=== PATIENT | female | born 1965 | race Caucasian/White ===

== ENCOUNTER 2020-03-08 13:11 | Emergency (ER) | payer OTHER, SELFPAY ==
[2020-03-08 13:16] VITALS: BP 108/58; PULSE 78; RESP 14; TEMP 36.2; O2SAT 96
--- NOTE | 2020-03-08 13:37 | ED.EYEPROB ---
HPI - Eye Problem General Chief complaint: Eye Problems Stated complaint: left eye pain Time Seen by Provider: 03/08/20 13:37 Source: patient and RN notes reviewed Mode of arrival: ambulatory Limitations: no limitations History of Present Illness HPI Narrative: 54 year old female who presents to [facility] care with complaints of left eye itching and tearing for the past 3 days with redness and discomfort. Patient states that she called her doctors office on the because of left eye itching and tearing and received Polymyxin eye drops, prednisone and has also been taking Claritin but no improvement has occurred in her eye. Patient admits to rubbing eye and states that scratchy feeling is worse when she blinks, and has increase tearing and discomfort. No contact lens usage.Patient states history of Sulfa Allergy. MD chief complaint: eye redness and other (irritating feeling) Onset (ago): week(s) (2 weeks with increase for the past 3 days) Onset description: gradual Duration: progressively worsening Location: left eye Eye Symptoms: redness and blurry vision (excessive tearing, itching, scratchy feeling) Place: home Mechanism: none Severity: moderate Severity scale (1-10): 8 If Pain, Quality: aching (irritated) and other (itching ) Context: other (allergies) Associated symptoms: rhinorrhea (initially) Treatments Prior to Arrival: other (polymyxin eye gtts she received from PMD office on ) Related Data Patient tetanus UTD: Yes Home Medications Medication Instructions Recorded Confirmed allopurinol 100 mg PO DAILY 03/08/20 03/08/20 atorvastatin 10 mg PO DAILY 03/08/20 03/08/20 carisoprodol 350 mg PO TID 03/08/20 03/08/20 cholecalciferol (vitamin D3) 50 mcg PO DAILY 03/08/20 03/08/20 [Vitamin D3] cilostazol 100 mg PO BID 03/08/20 03/08/20 clonazepam 1 mg PO DAILY 03/08/20 03/08/20 diclofenac potassium 50 mg PO BID 03/08/20 03/08/20 fluoxetine 20 mg PO BID 03/08/20 03/08/20 fluticasone propionate [Flovent 1 puff INHALATION Q12H 03/08/20 03/08/20 HFA] insulin glargine [Basaglar KwikPen 20 unit SUBCUT BID 03/08/20 03/08/20 U-100 Insulin] loratadine-pseudoephedrine 1 tablet PO Q12H 03/08/20 03/08/20 [Claritin-D 12 Hour] mupirocin 1 applic TOPICAL TID 03/08/20 03/08/20 oxycodone-acetaminophen 1 tablet PO Q6H PRN 03/08/20 03/08/20 polymyxin B sulf-trimethoprim 2 drp OPHTHALMIC (EYE) TID 03/08/20 03/08/20 prednisone 20 mg PO DAILY 03/08/20 03/08/20 pregabalin 100 mg PO BID 03/08/20 03/08/20 ropinirole 0.25 mg PO HS 03/08/20 03/08/20 Allergies Allergy/AdvReac Type Severity Reaction Status Date / Time levofloxacin Allergy Unknown Swelling Verified 03/08/20 13:39 Penicillins Allergy Unknown Swelling Verified 03/08/20 13:39 Sulfa (Sulfonamide Allergy Unknown Rash Verified 03/08/20 13:39 Antibiotics) Review of Systems Review of Systems: Narrative: CONSTITUTIONAL: Denies fever, chills, or sweats. EYES: Reports visual blurring excessive watering of left eye with eye redness itching scratchy feeling for 2 weeks with increase symptoms for past 3 days. ENT: Denies rhinorrhea, congestion, sore throat, or otalgia. CARDIOVASCULAR: Denies chest pain, palpitations, or edema. RESPIRATORY: Denies cough or acute dyspnea, reports COPD and tobacco abuse GASTROINTESTINAL: Denies abdominal pain, nausea, vomiting, or diarrhea. GENITOURINARY: Denies dysuria or hematuria. SKIN: Denies rash or itching. MUSCULOSKELETAL: Chronic back pain,chronic right ankle pain and myalgia. NEUROLOGIC: Denies headache, numbness, or weakness. PSYCHIATRIC: positive history of anxiety or depression. All systems reviewed & are unremarkable except as noted in HPI and below PMFSH Past Medical History Medical History (Updated 03/12/20 @ 08:59 by Shima Duarte NP) Anxiety and depression Arthritis Asthma COPD (chronic obstructive pulmonary disease) Diabetes Fibromyalgia Gout Neuropathy Osteoporosis PVD (peripheral vascular disease) Restless leg syndrom
== END 2020-03-08 14:15 | disposition home or self-care (01) ==
PROVIDERS: Emergency Provider Registered Nurse; PCP Internal Medicine
DX: S05.02XA Injury of conjunctiva and corneal abrasion without foreign body, left eye, initial encounter (principal); X58.XXXA Exposure to other specified factors, initial encounter
CPT/HCPCS: 99213; A9270; G0463

== ENCOUNTER 2021-01-08 13:42 | Emergency (ER) | payer OTHER, SELFPAY ==
--- NOTE | ~2021-01-08 | XR_ITS ---
XR foot LT min 3V DATE: 01/08/2021 14:12 INDICATION: Struck foot on headboard. Torso pain, first digit pain. TECHNIQUE: 4 views COMPARISON: None FINDINGS: There is an intramedullary pin extending from the base of the midshaft of the fifth metatar jennifer bone; healed fracture of the proximal fifth metatarsal bone.. No recent fracture or dislocation, periosteal reaction or bone destruction is detected. Plantar and posterior calcaneal enthesopathy. IMPRESSION: Intramedullary pin fifth metatarsal bone for old healed fracture No recent fracture is evident Plantar and posterior calcaneal enthesopathy Reviewed, dictated and finalized at location A.
[2021-01-08 13:56] VITALS: BP 124/65; PULSE 101; RESP 16; TEMP 36.6; O2SAT 95
--- NOTE | 2021-01-08 14:25 | ED.LOWEXIN ---
HPI - Extremity Injury (Lower) General Chief Complaint: Extremity Injury, Lower Stated Complaint: Possible injury to left Toe Time Seen by Provider: 01/08/21 14:25 History of Present Illness HPI Narrative: Belkys Haley is a 55-year-old female who has history of gout high cholesterol depression diabetes seasonal allergies, restless leg, antocoagulation,who struck foot on the footboard of bed last night. She states her left foot pain runs 6-9. 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 and is here only for x-ray of foot (she is diabetic) Related Data Home Medications Medication Instructions Recorded Confirmed allopurinol 100 mg PO DAILY 03/08/20 01/08/21 atorvastatin 10 mg PO DAILY 03/08/20 01/08/21 carisoprodol 350 mg PO TID 03/08/20 01/08/21 cholecalciferol (vitamin D3) 50 mcg PO DAILY 03/08/20 01/08/21 [Vitamin D3] cilostazol 100 mg PO BID 03/08/20 01/08/21 clonazepam 1 mg PO DAILY 03/08/20 01/08/21 diclofenac potassium 50 mg PO BID 03/08/20 01/08/21 fluoxetine 20 mg PO BID 03/08/20 01/08/21 fluticasone propionate [Flovent 1 puff INHALATION Q12H 03/08/20 01/08/21 HFA] insulin glargine [Basaglar KwikPen 20 unit SUBCUT BID 03/08/20 01/08/21 U-100 Insulin] loratadine-pseudoephedrine 1 tablet PO Q12H 03/08/20 01/08/21 [Claritin-D 12 Hour] mupirocin 1 applic TOPICAL TID 03/08/20 01/08/21 oxycodone-acetaminophen 1 tablet PO Q6H PRN 03/08/20 01/08/21 prednisone 20 mg PO DAILY 03/08/20 01/08/21 pregabalin 100 mg PO BID 03/08/20 01/08/21 ropinirole 0.25 mg PO HS 03/08/20 01/08/21 Allergies Allergy/AdvReac Type Severity Reaction Status Date / Time levofloxacin Allergy Unknown Swelling Verified 01/08/21 14:10 Penicillins Allergy Unknown Swelling Verified 01/08/21 14:10 Sulfa (Sulfonamide Allergy Unknown Rash Verified 01/08/21 14:10 Antibiotics) Review of Systems Review of Systems: CONSTITUTIONAL: Denies fever, chills, sweats. EYES: Denies visual changes, redness, discharge. ENT: Denies rhinorrhea, congestion, sore throat, otalgia. CARDIOVASCULAR: Denies chest pain, palpitations, edema. RESPIRATORY: Denies dyspnea, wheezing, cough GASTROINTESTINAL: Denies abdominal pain, nausea, vomiting, diarrhea. GENITOURINARY: Denies dysuria, hematuria, abnormal discharge SKIN: Denies rash or itching. NEUROLOGIC: Denies numbness, or focal weakness. PSYCHIATRIC: Denies anxiety or depression. Left foot pain after striking on foot board last night PMFSH Past Medical History Medical History Anxiety and depression Arthritis Asthma COPD (chronic obstructive pulmonary disease) Diabetes Fibromyalgia Gout Neuropathy Osteoporosis PVD (peripheral vascular disease) Restless leg syndrome Surgical History Surgical History H/O foot surgery X10 right H/O shoulder surgery right H/O: hysterectomy History of ankle surgery right reconstructive surgery X7 Social History Social History (Updated 03/12/20 @ 08:40 by Shima Duarte NP) Smoking packs per day: 1 Smoking cigarettes per day: 20.0 Smoking status: Current every day smoker Tobacco type: cigarettes Alcohol intake: unknown Substance use: current Substance use type: opiates Gender identity (if verbalized by the patient): Female Comments At time of signature, I agree with nursing past medical, surgical, social and family history. There is no relevant family history pertinent to the presenting complaint. Exam Narrative: GENERAL: This is a well-nourished, well-developed patient, in mild distress. HEAD: normocephalic, atraumatic. EYES: PERRL. Sclera clear/white. Vision is grossly intact. EARS: External ears norm. Hearing grossly intact. NOSE: External nose normal without nasal discharge, nares without redness, no rhinorrhea. THROAT: Mucous membranes moist, NECK: Neck supple, CARDI
== END 2021-01-08 14:38 | disposition home or self-care (01) ==
PROVIDERS: Emergency Provider Nurse Practitioner
DX: S99.922A Unspecified injury of left foot, initial encounter (principal); J44.9 Chronic obstructive pulmonary disease, unspecified; E11.9 Type 2 diabetes mellitus without complications; F41.9 Anxiety disorder, unspecified; F32.9 Major depressive disorder, single episode, unspecified; M81.0 Age-related osteoporosis without current pathological fracture; M10.9 Gout, unspecified; F17.210 Nicotine dependence, cigarettes, uncomplicated; Z79.4 Long term (current) use of insulin; W22.03XA Walked into furniture, initial encounter
CPT/HCPCS: 73630; 99213; G0463

== ENCOUNTER 2021-02-08 10:11 | Emergency (ER) | payer OTHER, SELFPAY ==
[2021-02-08 10:16] VITALS: BP 131/69; PULSE 95; RESP 20; TEMP 37.1; O2SAT 98
[2021-02-08 10:36] VITALS: BP 131/69; PULSE 95; RESP 20; TEMP 37.1; O2SAT 98
--- NOTE | 2021-02-08 10:41 | ED.EYEPROB ---
HPI - Eye Problem General Chief complaint: Eye Problems Stated complaint: left eye Time Seen by Provider: 02/08/21 10:43 Source: patient and RN notes reviewed Mode of arrival: ambulatory Limitations: no limitations History of Present Illness HPI Narrative: 55-year-old female presents with concern for left eye redness, burning, watery discharge. She reports occasional blurry vision. She denies injury, trauma, foreign body. Denies intervention. She denies upper respiratory symptoms such as rhinorrhea, nasal congestion. chief complaint: eye redness Related Data Home Medications Medication Instructions Recorded Confirmed insulin glargine [Basaglar KwikPen 45 unit SUBCUT HS 03/08/20 02/08/21 U-100 Insulin] Allergies Allergy/AdvReac Type Severity Reaction Status Date / Time levofloxacin Allergy Unknown Swelling Verified 02/08/21 10:34 Penicillins Allergy Unknown Swelling Verified 02/08/21 10:34 Sulfa (Sulfonamide Allergy Unknown Rash Verified 02/08/21 10:34 Antibiotics) Review of Systems Review of Systems: CONSTITUTIONAL: Denies malaise, chills, sweats, or fever. EYES: Reports occasional blurry vision in the left eye, redness, burning, watery drainage ENT: Denies rhinorrhea, congestion, sinus pain, otalgia or sore throat. SKIN: Denies rash or itching. NEUROLOGIC: Denies headache. All systems reviewed & are unremarkable except as noted in HPI and below PMFSH Past Medical History Medical History Anxiety and depression Arthritis Asthma COPD (chronic obstructive pulmonary disease) Diabetes Fibromyalgia Gout Neuropathy Osteoporosis PVD (peripheral vascular disease) Restless leg syndrome Surgical History Surgical History H/O foot surgery X10 right H/O shoulder surgery right H/O: hysterectomy History of ankle surgery right reconstructive surgery X7 Social History Social History (Updated 03/12/20 @ 08:40 by Shima Duarte NP) Smoking packs per day: 1 Smoking cigarettes per day: 20.0 Smoking status: Current every day smoker Tobacco type: cigarettes Alcohol intake: unknown Substance use: current Substance use type: opiates Gender identity (if verbalized by the patient): Female Comments At time of signature, agree with nursing past medical, surgical, social and family history. There is no relevant family history pertinent to the presenting complaint Exam Narrative: GENERAL: Well-appearing, well-nourished, and in no acute distress. HEAD: Normocephalic, atraumatic. EYES: PERRLA, EOMI, right conjunctivae and sclera clear. No nystagmus. Left sclera and conjunctive injected with watery discharge noted no eyelid edema, no hordeolum noted, no foreign body noted. ENT: Nares clear. Mucous membranes moist. NECK: Supple. CHEST: No respiratory distress. Speaks in full sentences. HEART: Regular rate and rhythm. SKIN: Warm, dry, no visible rash. NEURO: Alert and oriented x3. PSYCH: Normal mood and affect Course Course Emergency Course: Patient is aware of diagnosis, understands and agrees to treatment plan. Anticipatory guidance given. Patient agrees to follow-up as directed and is aware of reasons to seek care at the emergency department. Portions of this record may have been created with voice recognition software Vital Signs Vital signs: Vital Signs Temperature 98.8 F 02/08/21 10:16 Pulse Rate 95 02/08/21 10:16 Respiratory Rate 20 02/08/21 10:16 Blood Pressure 131/69 02/08/21 10:16 Pulse Oximetry 98 02/08/21 10:16 Temperature 98.8 F 02/08/21 10:36 Pulse Rate 95 02/08/21 10:36 Respiratory Rate 20 02/08/21 10:36 Blood Pressure 131/69 02/08/21 10:36 Pulse Oximetry 98 02/08/21 10:36 Reviewed. MDM - Eye Problem MDM Narrative Medical decision making narrative: Consideration of the following conditions may be warranted for t
== END 2021-02-08 11:00 | disposition home or self-care (01) ==
PROVIDERS: Emergency Provider Nurse Practitioner
DX: H10.32 Unspecified acute conjunctivitis, left eye (principal); F17.210 Nicotine dependence, cigarettes, uncomplicated; M19.90 Unspecified osteoarthritis, unspecified site; J44.9 Chronic obstructive pulmonary disease, unspecified; E11.42 Type 2 diabetes mellitus with diabetic polyneuropathy; M79.7 Fibromyalgia; M10.9 Gout, unspecified; M81.0 Age-related osteoporosis without current pathological fracture; I73.9 Peripheral vascular disease, unspecified; G25.81 Restless legs syndrome
CPT/HCPCS: 99213; G0463

== ENCOUNTER 2022-05-16 11:42 | Emergency (ER) | payer OTHER, SELFPAY ==
--- NOTE | 2022-05-16 11:58 | ED.URI ---
HPI - URI/Sore Throat General Chief Complaint: Upper Respiratory Infection Stated Complaint: cold flu Time Seen by Provider: 05/16/22 12:17 Source: patient and RN notes reviewed Mode of arrival: ambulatory Limitations: no limitations History of Present Illness HPI Narrative: 56 year-old female with history of COPD and asthma presents with concern for 2 week history of cough, nasal congestion, shortness of breath. Reports she does not have any albuterol inhaler left. Reports she was unable to see her primary care doctor. MD elicited complaint: cough and sore throat Related Data Home Medications Medication Instructions Recorded Confirmed insulin glargine 100 unit/mL (3 45 unit subcut HS 03/08/20 05/16/22 mL) subcutaneous pen (Basaglar KwikPen U-100 Insulin) allopurinol 100 mg tablet 100 mg PO DIRECTED 05/16/22 05/16/22 atorvastatin 40 mg tablet 40 mg PO DIRECTED 05/16/22 05/16/22 pregabalin 100 mg capsule 100 mg PO DIRECTED 05/16/22 05/16/22 ropinirole 0.5 mg tablet 0.5 mg PO DIRECTED 05/16/22 05/16/22 Allergies Allergy/AdvReac Type Severity Reaction Status Date / Time levofloxacin Allergy Unknown Swelling Verified 05/16/22 11:55 Penicillins Allergy Unknown Swelling Verified 05/16/22 11:55 Sulfa (Sulfonamide Allergy Unknown Rash Verified 05/16/22 11:55 Antibiotics) Review of Systems Review of Systems: CONSTITUTIONAL: Reports malaise denies chills, sweats, or fever. EYES: Denies visual changes, redness, or discharge. ENT: Reports rhinorrhea, congestion. Denies sinus pain, otalgia and sore throat. CARDIOVASCULAR: Denies chest pain, palpitations, or edema. RESPIRATORY: Reports cough, dyspnea. GASTROINTESTINAL: Denies abdominal pain, nausea, vomiting, diarrhea SKIN: Denies rash or itching. MUSCULOSKELETAL: Denies myalgia. NEUROLOGIC: Denies headache. All systems reviewed & are unremarkable except as noted in HPI and below PMFSH Past Medical History Medical History Anxiety and depression Arthritis Asthma COPD (chronic obstructive pulmonary disease) Diabetes Fibromyalgia Gout Neuropathy Osteoporosis PVD (peripheral vascular disease) Restless leg syndrome Surgical History Surgical History H/O foot surgery X10 right H/O shoulder surgery right H/O: hysterectomy History of ankle surgery right reconstructive surgery X7 Social History Social History (Updated 03/12/20 @ 08:40 by Shima Duarte NP) Smoking packs per day: 1 Smoking cigarettes per day: 20.0 Smoking status: Current every day smoker Tobacco type: cigarettes Alcohol intake: unknown Substance use: current Substance use type: opiates Gender identity (if verbalized by the patient): Female Comments At time of signature, agree with nursing past medical, surgical, social and family history. There is no relevant family history pertinent to the presenting complaint Exam Narrative: GENERAL: Well-appearing, well-nourished, and in no acute distress. HEAD: Normocephalic EYES: PERRLA, conjunctivae clear ENT: Nares clear, turbinates edematous and erythematous, clear discharge. Mucous membranes moist. TM pearly kerr with dull light reflex bilaterally; no tragal tenderness. Oropharynx not erythematous without lesions. Tonsils not enlarged and without exudate, no drooling, no hoarseness, no trismus, uvula midline. NECK: Supple. No lymphadenopathy CHEST: Scattered expiratory wheeze and rhonchi, breath sounds equal. No rales, or stridor. No respiratory distress, speaks in full sentences. HEART: Regular rate and rhythm. No murmur heard. SKIN: Warm, dry, no rash. NEURO: Alert and oriented x3. PSYCH: Normal mood and affect Course Course Emergency Course: Patient is aware of diagnosis, understands and agrees to treatment plan. Anticipatory guidance given. Patient agrees to follow-up as directed and is aware o
[2022-05-16 12:29] VITALS: BP 138/83; PULSE 111; RESP 20; TEMP 36.6; O2SAT 97
== END 2022-05-16 12:29 | disposition home or self-care (01) ==
PROVIDERS: Emergency Provider Nurse Practitioner; PCP Internal Medicine
DX: J44.1 Chronic obstructive pulmonary disease with (acute) exacerbation (principal); F17.210 Nicotine dependence, cigarettes, uncomplicated; M19.90 Unspecified osteoarthritis, unspecified site; J45.909 Unspecified asthma, uncomplicated; E11.40 Type 2 diabetes mellitus with diabetic neuropathy, unspecified; E11.51 Type 2 diabetes mellitus with diabetic peripheral angiopathy without gangrene; Z79.4 Long term (current) use of insulin; M79.7 Fibromyalgia; M10.9 Gout, unspecified; M81.0 Age-related osteoporosis without current pathological fracture; G25.81 Restless legs syndrome
CPT/HCPCS: 99213; G0463

== ENCOUNTER 2022-08-24 15:32 | Emergency (ER) | payer OTHER, SELFPAY ==
[2022-08-24 16:04] VITALS: BP 138/77; PULSE 105; RESP 16; TEMP 36.1; O2SAT 97
--- NOTE | 2022-08-24 16:30 | ED.SKABFB ---
HPI - Skin/Abscess/Foreign Bdy General Chief complaint: Skin/Abscess/Foreign Body Stated complaint: Rash Source: patient and RN notes reviewed History of Present Illness HPI narrative: 57-year-old female presents urgent care with complaints of a rash to bilateral arms, hands, and neck. Patient states she 1st noticed it on her arms 3 days ago and believes this is poison federico. Patient admits to walking in the [place] with her dog recently. Denies any fevers, chills, chest pain, shortness of breath, or vomiting. Patient has attempted putting cortisone cream on it without relief. Some parts of this dictation were generated by voice recognition software and may contain typographical and/or grammatical inaccuracies. Related Data Home Medications Medication Instructions Recorded Confirmed insulin glargine 100 unit/mL (3 45 unit subcut HS 03/08/20 08/24/22 mL) subcutaneous pen (Basaglar KwikPen U-100 Insulin) allopurinol 100 mg tablet 100 mg PO DIRECTED 05/16/22 08/24/22 pregabalin 100 mg capsule 100 mg PO DIRECTED 05/16/22 08/24/22 ropinirole 0.5 mg tablet 0.5 mg PO DIRECTED 05/16/22 08/24/22 bupropion HCl 150 mg 24 hr tablet, mg PO 08/24/22 extended release cyclobenzaprine 10 mg tablet 10 mg PO BID 08/24/22 08/24/22 famotidine 20 mg tablet 20 mg PO BID 08/24/22 08/24/22 tiotropium bromide 18 mcg capsule inhalation 08/24/22 with inhalation device (Spiriva with HandiHaler) Allergies Allergy/AdvReac Type Severity Reaction Status Date / Time levofloxacin Allergy Unknown Swelling Verified 08/24/22 16:16 Penicillins Allergy Unknown Swelling Verified 08/24/22 16:16 Sulfa (Sulfonamide Allergy Unknown Rash Verified 08/24/22 16:16 Antibiotics) Review of Systems Review of Systems: Pertinent positives and pertinent negatives per HPI. PMFSH Past Medical History Medical History Anxiety and depression Arthritis Asthma COPD (chronic obstructive pulmonary disease) Diabetes Fibromyalgia Gout Neuropathy Osteoporosis PVD (peripheral vascular disease) Restless leg syndrome Surgical History Surgical History H/O foot surgery X10 right H/O shoulder surgery right H/O: hysterectomy History of ankle surgery right reconstructive surgery X7 Social History Social History (Updated 03/12/20 @ 08:40 by Shima Duarte NP) Smoking packs per day: 1 Smoking cigarettes per day: 20.0 Smoking status: Current every day smoker Tobacco type: cigarettes Alcohol intake: unknown Substance use: current Substance use type: opiates Living arrangements: with family Gender identity (if verbalized by the patient): Female Comments At the time of my signature, I reviewed and agree with the nursing past medical, surgical, social, and family history. There is no relevant family history pertinent to the patient complaint. Exam Narrative: GENERAL: This is a well-nourished, well-developed patient, in no apparent distress. HEAD: normocephalic, atraumatic. EYES: Sclera clear/white. Vision is grossly intact. EARS: External ears normal, auditory canals clear and without drainage, TMs normal without perforation. Hearing grossly intact. NOSE: External nose normal with no obvious nasal discharge, nares without redness, no rhinorrhea. THROAT: Mucous membranes moist, posterior pharynx clear. NECK: Neck supple, non-tender without lymphadenopathy, masses or thyromegaly. CARDIOVASCULAR: Regular rate and rhythm without murmurs, gallops, or rubs. RESPIRATORY: Clear to auscultation. Breath sounds equal bilaterally. No wheezes, rales, or rhonchi. GASTROINTESTINAL: Abdomen soft, non-tender, nondistended. Bowel sounds are active. No hepato-splenomegaly, or palpable masses. No guarding. SKIN: erythremic rash to bilatera arms, hands, and neck. one spot to right upper cheek. NEURO: awake, alert, and oriented to person, p
== END 2022-08-24 16:38 | disposition home or self-care (01) ==
PROVIDERS: Emergency Provider Nurse Practitioner Family; PCP Internal Medicine
DX: L24.7 Irritant contact dermatitis due to plants, except food (principal); F17.210 Nicotine dependence, cigarettes, uncomplicated; M19.90 Unspecified osteoarthritis, unspecified site; J44.9 Chronic obstructive pulmonary disease, unspecified; M79.7 Fibromyalgia; M10.9 Gout, unspecified; E11.40 Type 2 diabetes mellitus with diabetic neuropathy, unspecified; M81.0 Age-related osteoporosis without current pathological fracture; E11.51 Type 2 diabetes mellitus with diabetic peripheral angiopathy without gangrene; Z79.4 Long term (current) use of insulin; G25.81 Restless legs syndrome
CPT/HCPCS: 99213; G0463